=== PATIENT | female | born 1970 | race Asian ===

== ENCOUNTER 2019-12-08 20:48 | Emergency (ER) | payer MEDICAID ==
[~2019-12-08] VITALS: Ht 152.4 cm; Wt 73.0 kg
[2019-12-08 20:53] VITALS: BP 136/79
[2019-12-08] MEDS ORDERED: ACETAMINOPHEN 325MG TABLET PO STA (21:12)
[2019-12-08 21:47] LABS: BASOPHILS % 0.7 % (0.0-2.0); EOSINOPHILS % 3.4 % (0.0-5.0); LYMPHOCYTES % 38.1 % (20.0-50.0); MEAN CORPUSCULAR HEMOGLOBIN 21.6 pg (28.0-32.0); MEAN CORPUSCULAR VOLUME 66.7 fL (81.0-99.0); MEAN PLATELET VOLUME 10.1 fl (7.4-10.4); NEUTROPHILS % 50.8 % (40.0-76.0); PLATELET 265 x1000/uL (130-400); RED CELL DISTRIBUTION WIDTH 15.5 % (11.6-14.6)
[2019-12-08 21:53] LABS: CLARITY URINE CLOUDY (CLEAR); COLOR URINE YELLOW (YELLOW); KETONES URINE NEGATIVE (NEGATIVE); LEUKOCYTE ESTERASE URINE 3+ (NEGATIVE); NITRITE URINE NEGATIVE (NEGATIVE); OCCULT BLOOD URINE TRACE (NEGATIVE); PH URINE 5.5 (4.5-8.0); PROTEIN URINE NEGATIVE (NEGATIVE); SPECIFIC GRAVITY URINE 1.008 (1.005-1.030); UROBILINOGEN URINE 0.2 E.U./dL (0.2-1.0)
[2019-12-08 21:53] LABS: CHLORIDE 106 mEq/L (98-107)
[2019-12-08 22:00] LABS: PROTHROMBIN TIME 10.5 sec (9.6-11.0)
[2019-12-08 23:27] LABS: PLATELET ESTIMATE NORMAL
[2019-12-08] MEDS ORDERED: IOHEXOL-300 100 ML BOTTLE ONE (23:38)
== END 2019-12-08 23:09 | disposition home or self-care (01) ==
LOC: ER 20:48
DX: S30.1XXA Contusion of abdominal wall, initial encounter (principal); R51 Headache; V49.59XA Passenger injured in collision with other motor vehicles in traffic accident, initial encounter; Y93.89 Activity, other specified; R03.0 Elevated blood-pressure reading, without diagnosis of hypertension; Y92.488 Other paved roadways as the place of occurrence of the external cause
CPT/HCPCS: 36415; 70450; 71045; 74177; 80053; 81003; 85025; 85610; 99285; Q9967

== ENCOUNTER 2024-11-01 19:40 | Emergency (ER) | payer MEDICAID ==
[~2024-11-01] VITALS: Ht 162.6 cm; Wt 71.0 kg
[2024-11-01 19:42] VITALS: O2SAT 100
[2024-11-01 23:34] LABS: BASOPHILS % 0.5 % (0.0-2.0); EOSINOPHILS % 1.5 % (0.0-5.0); HEMATOCRIT. 35.3 % (36.0-48.0); HEMOGLOBIN. 11.0 g/dL (12.0-16.0); LYMPHOCYTES % 35.5 % (20.0-50.0); MEAN PLATELET VOLUME 9.1 fl (7.4-10.4); MONOCYTES % 5.0 % (2.0-8.0); NEUTROPHILS % 57.5 % (40.0-76.0); PLATELET 315 x1000/uL (130-400); RED BLOOD CELL COUNT 5.33 mill/uL (4.2-5.4); RED CELL DISTRIBUTION WIDTH 16.3 % (11.6-14.6)
[2024-11-01 23:41] LABS: CREATININE 0.8 mg/dL (0.6-1.0)
[2024-11-01 23:42] LABS: UREA NITROGEN BLOOD 8 mg/dL (9-23)
[2024-11-02 00:02] LABS: ADD RBC MORPHOLOGY YES
[2024-11-02 00:37] LABS: PLATELET ESTIMATE NORMAL
[2024-11-02 01:02] VITALS: BP 156/68; PULSE 67; RESP 16; TEMP 36.9; O2SAT 100
== END 2024-11-02 01:05 | disposition home or self-care (01) ==
LOC: ER 19:40
DX: R42 Dizziness and giddiness (principal); E78.00 Pure hypercholesterolemia, unspecified; E11.9 Type 2 diabetes mellitus without complications; Z98.890 Other specified postprocedural states
CPT/HCPCS: 36415; 80048; 85025; 93005; 99284